=== PATIENT | male | born 1960 | race Two or more races ===

== ENCOUNTER 2018-02-13 16:15 | Emergency (ER) | payer OTHER ==
[~2018-02-13] VITALS: Ht 180.3 cm; Wt 69.0 kg
[2018-02-13 16:19] VITALS: BP 145/102
== END 2018-02-13 21:16 | disposition left against medical advice (07) ==
LOC: ER 16:15
DX: R53.1 Weakness (principal); Z53.21 Procedure and treatment not carried out due to patient leaving prior to being seen by health care provider

== ENCOUNTER 2018-04-21 06:50 | Emergency (ER) | payer OTHER | END 2018-04-21 08:06 | disposition left against medical advice (07) | LOC: ER 06:50 | DX: Z53.21 Procedure and treatment not carried out due to patient leaving prior to being seen by health care provider (principal) ==

== ENCOUNTER 2021-03-24 05:58 | Emergency (ER) | payer MEDICAID, OTHER ==
[~2021-03-24] VITALS: Ht 180.3 cm; Wt 83.9 kg
[2021-03-24] MEDS ORDERED: FUROSEMIDE 40MG/4ML VIAL IV ONE (06:30)
[2021-03-24 06:42] LABS: CHLORIDE 109 mEq/L (98-107)
[2021-03-24 06:52] LABS: BASOPHILS % 0.8 % (0.0-2.0); HEMATOCRIT. 41.4 % (42.0-52.0); LYMPHOCYTES % 37.6 % (20.0-50.0); MEAN CORPUSCULAR HEMOGLOBIN 31.9 pg (28.0-32.0); MEAN CORPUSCULAR VOLUME 94.7 fL (80.0-94.0); MONOCYTES % 8.1 % (2.0-8.0); NEUTROPHILS % 50.5 % (40.0-76.0); PLATELET 211 x1000/uL (130-400); RED BLOOD CELL COUNT 4.37 mill/uL (4.7-6.1); RED CELL DISTRIBUTION WIDTH 13.3 % (11.6-14.6)
[2021-03-24] MEDS ORDERED: ACETAMINOPHEN 325MG TABLET PO PRN (14:15)
[2021-03-24] MEDS ORDERED: ONDANSETRON HCL 4MG/2ML INJ IV PRN (14:15)
[2021-03-24] MEDS ORDERED: IPRATROPIUM/ALBUTEROL 0.5-3(2.5)MG/3ML NEB HHN PRN (14:15)
[2021-03-24] MEDS ORDERED: FUROSEMIDE 40MG/4ML VIAL IVP SCH (17:15)
[2021-03-24 17:56] VITALS: BP 117/81
== END 2021-03-24 17:59 | disposition short-term general hospital (02) ==
LOC: ER 05:58 → EDBEDREQTM 07:28 → EDBEDREQ 07:28 → EDBEDREQTM 12:25 → ER 17:59 → CANBEDREQ 19:02
DX: I11.0 Hypertensive heart disease with heart failure (principal); I50.23 Acute on chronic systolic (congestive) heart failure; N17.9 Acute kidney failure, unspecified; E44.0 Moderate protein-calorie malnutrition; J84.9 Interstitial pulmonary disease, unspecified; D72.819 Decreased white blood cell count, unspecified; E87.8 Other disorders of electrolyte and fluid balance, not elsewhere classified; Z68.25 Body mass index [BMI] 25.0-25.9, adult; Z72.0 Tobacco use; F14.90 Cocaine use, unspecified, uncomplicated; Z71.51 Drug abuse counseling and surveillance of drug abuser
CPT/HCPCS: 36415; 71045; 80053; 83880; 84484; 85025; 93005; 96374; 99285; J1940

== ENCOUNTER 2021-09-21 01:55 | Emergency (ER) | payer MEDICAID, OTHER ==
[~2021-09-21] VITALS: Ht 162.6 cm; Wt 84.0 kg
[2021-09-21] MEDS ORDERED: BACITRACIN ZINC OINT UDPKT TOP ONE (02:45)
[2021-09-21] MEDS ORDERED: HYDROCODONE/ACETAMINOPHEN 5/325MG TABLET PO ONE (02:45)
[2021-09-21] MEDS ORDERED: TETANUS, DIPHTHERIA, PERTUSSIS VAC/PF 0.5ML (>10YR OLD) IM ONE (03:00)
[2021-09-21] MEDS ORDERED: LIDOCAINE HCL/EPINEPHRINE 1%-EPI 1:100,000 20 ML VIAL INFIL ONE (03:15)
[2021-09-21] MEDS ORDERED: HYDROCODONE/ACETAMINOPHEN 5/325MG TABLET PO SCH (06:27)
[2021-09-21] MEDS ORDERED: ACET-2708 PO (06:30)
[2021-09-21] MEDS ORDERED: T3 PO (06:39)
[2021-09-21 06:45] VITALS: BP 138/84
== END 2021-09-21 06:45 | disposition home or self-care (01) ==
LOC: ER 01:55
DX: S01.112A Laceration without foreign body of left eyelid and periocular area, initial encounter (principal); Y08.89XA Assault by other specified means, initial encounter; Y93.89 Activity, other specified; Y92.89 Other specified places as the place of occurrence of the external cause; Y99.8 Other external cause status; F12.10 Cannabis abuse, uncomplicated; F14.10 Cocaine abuse, uncomplicated; I50.9 Heart failure, unspecified
CPT/HCPCS: 70450; 90471; 90715; 99284; J3490; Z7610

== ENCOUNTER 2022-07-07 05:34 | Inpatient (IN) | payer OTHER ==
[~2022-07-07] VITALS: Ht 180.3 cm; Wt 75.7 kg
[~2022-07-07 05:34] MED LIST: T3 PO
[2022-07-07 06:25] LABS: BASOPHILS % 0.4 % (0.0-2.0); CHLORIDE 107 mEq/L (98-107); EOSINOPHILS % 1.4 % (0.0-5.0); HEMATOCRIT. 44.1 % (42.0-52.0); HEMOGLOBIN. 14.6 g/dL (14.0-18.0); LYMPHOCYTES % 21.4 % (20.0-50.0); MEAN CORPUSCULAR HEMOGLOBIN 31.6 pg (28.0-32.0); MEAN CORPUSCULAR VOLUME 95.1 fL (80.0-94.0); MEAN PLATELET VOLUME 7.5 fl (7.4-10.4); MONOCYTES % 11.2 % (2.0-8.0); NEUTROPHILS % 65.6 % (40.0-76.0); PLATELET 214 x1000/uL (130-400); RED BLOOD CELL COUNT 4.64 mill/uL (4.7-6.1); RED CELL DISTRIBUTION WIDTH 14.9 % (11.6-14.6)
[2022-07-07] MEDS ORDERED: ASPIRIN 325MG EC TABLET PO ONE (07:45)
[2022-07-07] MEDS ORDERED: ASPIRIN 325MG EC TABLET PO NR (12:45)
[2022-07-07] MEDS ORDERED: CLONIDINE 0.1MG TABLET PO PRN (14:45)
[2022-07-07] MEDS ORDERED: DOCUSATE SODIUM 100MG CAPSULE PO PRN (14:45)
[2022-07-07] MEDS ORDERED: IPRATROPIUM/ALBUTEROL 0.5-3(2.5)MG/3ML NEB HHN PRN (14:45)
[2022-07-07] MEDS ORDERED: ONDANSETRON HCL 4MG/2ML INJ IV PRN (14:45)
[2022-07-07] MEDS ORDERED: ACETAMINOPHEN 325MG TABLET PO PRN ×2 (14:45)
[2022-07-07] MEDS ORDERED: HYDROCODONE/ACETAMINOPHEN 5/325MG TABLET PO PRN (14:45)
[2022-07-07] MEDS ORDERED: LORAZEPAM 0.5MG TABLET PO PRN (14:45)
[2022-07-07 15:15] VITALS: BP 124/85
[2022-07-07 16:00] VITALS: BP 132/77
[2022-07-07] MEDS: ENOXAPARIN 40MG/0.4ML SYR SUBCUT SCH (16:02)
[2022-07-07] MEDS ORDERED: FURO40TA5 PO (16:44)
[2022-07-07 17:47] LABS: T4 FREE 1.26 ng/dL (0.76-1.46)
[2022-07-07 18:17] LABS: HEPATITIS B SURFACE ANTIGEN NEGATIVE
[2022-07-07] MEDS ORDERED: ALBUTEROL (0.083%) 2.5MG/3ML NEB HHN PRN (19:45)
[2022-07-07] MEDS ORDERED: IPRATROPIUM BROMIDE (0.02%) 0.5MG/2.5ML NEB HHN PRN (19:45)
[2022-07-07] MEDS ORDERED: NALOXONE HCL 0.4MG/ML VIAL IV PRN (19:45)
[2022-07-07 20:00] VITALS: BP 134/102
[2022-07-07 23:27] LABS: CREATINE KINASE MB FRACTION 4.2 ng/mL (0.5-3.6)
[2022-07-07 23:28] LABS: *AMPHETAMINES SCREEN URINE NEGATIVE (NEGATIVE); *BARBITURATES SCREEN URINE NEGATIVE (NEGATIVE); *BENZODIAZEPINES SCREEN URINE NEGATIVE (NEGATIVE); *COCAINE SCREEN URINE PRESUMTIVE POSITIVE (NEGATIVE); CANNABINOID URINE SCREEN NEGATIVE (NEGATIVE); METHADONE URINE SCREEN NEGATIVE (NEGATIVE); OPIATES URINE SCREEN NEGATIVE (NEGATIVE); PHENCYCLIDINE URINE SCREEN NEGATIVE (NEGATIVE)
[2022-07-08] VITALS: BP 127/85
[2022-07-08 04:00] VITALS: BP 128/83
[2022-07-08 08:00] VITALS: BP 131/89
[2022-07-08] MEDS: FUROSEMIDE 20MG/2ML VIAL IVP SCH (09:00)
[2022-07-08 09:21] LABS: BASOPHILS % 0.7 % (0.0-2.0); EOSINOPHILS % 1.9 % (0.0-5.0); HEMATOCRIT. 42.7 % (42.0-52.0); HEMOGLOBIN. 13.9 g/dL (14.0-18.0); MEAN CORPUSCULAR HEMOGLOBIN 31.2 pg (28.0-32.0); MEAN CORPUSCULAR VOLUME 95.7 fL (80.0-94.0); MEAN PLATELET VOLUME 8.1 fl (7.4-10.4); MONOCYTES % 11.5 % (2.0-8.0); NEUTROPHILS % 51.9 % (40.0-76.0); PLATELET 206 x1000/uL (130-400); RED BLOOD CELL COUNT 4.46 mill/uL (4.7-6.1); RED CELL DISTRIBUTION WIDTH 15.1 % (11.6-14.6)
[2022-07-08 09:38] LABS: CREATINE KINASE MB FRACTION 3.3 ng/mL (0.5-3.6)
[2022-07-08 12:00] VITALS: BP 118/95
[2022-07-08] MEDS: LOSARTAN POTASSIUM 25 MG TABLET PO SCH (13:00)
[2022-07-08] MEDS: ENOXAPARIN 40MG/0.4ML SYR SUBCUT SCH (15:51)
[2022-07-08 16:00] VITALS: BP 115/89
[2022-07-08 18:29] LABS: CREATINE KINASE MB FRACTION 2.9 ng/mL (0.5-3.6)
[2022-07-08 20:00] VITALS: BP 140/99
[2022-07-09] VITALS: BP 139/96
[2022-07-09 04:00] VITALS: BP 128/95
[2022-07-09 08:00] VITALS: BP 132/104
[2022-07-09] MEDS: LOSARTAN POTASSIUM 25 MG TABLET PO SCH (08:36)
[2022-07-09] MEDS: FUROSEMIDE 20MG/2ML VIAL IVP SCH (08:36)
[2022-07-09 12:00] VITALS: BP 126/98
[2022-07-09 16:00] VITALS: BP 132/96
[2022-07-09] MEDS: ENOXAPARIN 40MG/0.4ML SYR SUBCUT SCH (16:09)
[2022-07-09 20:00] VITALS: BP 136/89
== END 2022-07-09 23:31 | disposition left against medical advice (07) | DRG 194 ==
LOC: ER 05:34 → 7WST 10:36 → EDBEDREQ 10:43 → EDBEDREQTM 10:43
PROVIDERS: ADMIT Internal Medicine; ATTEND Internal Medicine
DX: I50.23 Acute on chronic systolic (congestive) heart failure (principal); I42.9 Cardiomyopathy, unspecified; Z20.822 Contact with and (suspected) exposure to COVID-19; J43.9 Emphysema, unspecified; R79.89 Other specified abnormal findings of blood chemistry; Z53.29 Procedure and treatment not carried out because of patient's decision for other reasons; Z59.00 Homelessness unspecified; Z87.891 Personal history of nicotine dependence
CPT/HCPCS: 36415; 71045; 80048; 80053; 80061; 80305; 82550; 82553; 83036; 83880; 84439; 84443; 84484; 85025; 85379; 86803; 87340; 87426; 93005; 93306; 99285; J1650; J1940

== ENCOUNTER 2022-07-15 22:17 | Emergency (ER) | payer OTHER ==
[~2022-07-15] VITALS: Ht 167.6 cm; Wt 75.0 kg
[~2022-07-15 22:17] MED LIST changes: +FURO40TA5 PO
[2022-07-15 22:30] VITALS: BP 106/52
[2022-07-16] MEDS ORDERED: FUROSEMIDE 100MG/10ML VIAL IVP ONE
[2022-07-16 00:45] LABS: BASOPHILS % 0.7 % (0.0-2.0); EOSINOPHILS % 2.4 % (0.0-5.0); HEMATOCRIT. 44.1 % (42.0-52.0); HEMOGLOBIN. 14.5 g/dL (14.0-18.0); LYMPHOCYTES % 29.9 % (20.0-50.0); MEAN CORPUSCULAR HEMOGLOBIN 31.8 pg (28.0-32.0); MEAN CORPUSCULAR VOLUME 96.5 fL (80.0-94.0); MEAN PLATELET VOLUME 7.8 fl (7.4-10.4); MONOCYTES % 12.8 % (2.0-8.0); NEUTROPHILS % 54.2 % (40.0-76.0); PLATELET 261 x1000/uL (130-400); RED BLOOD CELL COUNT 4.57 mill/uL (4.7-6.1); RED CELL DISTRIBUTION WIDTH 15.2 % (11.6-14.6)
[2022-07-16 00:52] LABS: CHLORIDE 108 mEq/L (98-107)
[2022-07-16] MEDS ORDERED: ASPIRIN 325MG EC TABLET PO ONE (02:30)
[2022-07-16] MEDS ORDERED: FUROSEMIDE 100MG/10ML VIAL IVP NR (04:30)
[2022-07-16] MEDS ORDERED: ASPIRIN 325MG EC TABLET PO NR (04:30)
[2022-07-16] MEDS ORDERED: LEVO750T68 MT (06:24)
[2022-07-16] MEDS ORDERED: ALBU6.7H3 INH (06:26)
== END 2022-07-16 06:40 | disposition home or self-care (01) ==
LOC: ER 22:26
DX: I50.9 Heart failure, unspecified (principal); R05.9 Cough, unspecified; F12.10 Cannabis abuse, uncomplicated; F14.10 Cocaine abuse, uncomplicated; F17.210 Nicotine dependence, cigarettes, uncomplicated; Z79.01 Long term (current) use of anticoagulants; Z20.822 Contact with and (suspected) exposure to COVID-19
CPT/HCPCS: 36415; 71045; 80053; 83880; 84484; 85025; 96374; 99284; J1940; Z7610

== ENCOUNTER 2022-11-16 12:55 | Emergency (ER) | payer OTHER ==
[~2022-11-16] VITALS: Ht 182.9 cm; Wt 77.5 kg
[~2022-11-16 12:55] MED LIST changes: +ALBU6.7H3 INH; +ASPI-1160 PO; +FURO40TA5 MT; -FURO40TA5 PO; +LIP40 PO; +LOSA-412 PO; +MED4 MT; +SPIR25TA PO; -T3 PO
[2022-11-16 13:01] VITALS: O2SAT 100
[2022-11-16] MEDS ORDERED: ALBUTEROL (0.083%) 2.5MG/3ML NEB HHN STA (13:03)
[2022-11-16] MEDS ORDERED: METHYLPREDNISOLONE SOD SUCC 125MG/2ML (ACT-O-VIAL) IV STA (13:03)
[2022-11-16 14:07] VITALS: PULSE 89; RESP 26
[2022-11-16 15:04] LABS: BG BASE EXCESS 1.6 mmol/L (-2.0-2.0); BG CARBOXYHEMOGLOBIN 4.6 % (0.5-1.5); BG DEOXYHEMOGLOBIN 3.8 % (0.0-5.0); BG HCO3 ACT 27.7 mmol/L (22.0-26.0); BG METHEMOGLOBIN 0.2 % (0.0-1.5); BG OXYHEMOGLOBIN 91.4 % (94.0-97.0); BG PCO2 49.1 mmHg (35.0-45.0); BG PO2 79.8 mmHg (75.0-100.0); BG SAMPLE SITE RIGHT BRACHIAL; BG TOTAL HEMOGLOBIN 15.3 g/dL (12.0-18.0); BG VENT MODE NASAL CANNULA
[2022-11-16 15:11] LABS: BASOPHILS % 0.4 % (0.0-2.0); EOSINOPHILS % 1.2 % (0.0-5.0); HEMOGLOBIN. 14.5 g/dL (14.0-18.0); MEAN CORPUSCULAR HEMOGLOBIN 32.7 pg (28.0-32.0); MEAN CORPUSCULAR HGB CONC 32.9 g/dL (31.0-37.0); MEAN CORPUSCULAR VOLUME 99.4 fL (80.0-94.0); MEAN PLATELET VOLUME 7.7 fl (7.4-10.4); NEUTROPHILS % 61.4 % (40.0-76.0); PLATELET 178 x1000/uL (130-400); RED BLOOD CELL COUNT 4.43 mill/uL (4.7-6.1); RED CELL DISTRIBUTION WIDTH 14.2 % (11.6-14.6); WHITE BLOOD COUNT 4.4 x1000/uL (4.5-11.0)
[2022-11-16 15:19] LABS: CHLORIDE 107 mEq/L (98-107); INDEX HEMOLYSI 1 (1-3); INDEX ICTERIC 1 (1-4); INDEX LIPEMIC 1 (1-3); POTASSIUM 4.3 mEq/L (3.5-5.1); SODIUM 138 mEq/L (136-145)
[2022-11-16 15:30] LABS: ALANINE AMINOTRANSFERASE 19 IU/L (13-61); ALBUMIN 2.8 g/dL (3.4-5.0); ASPARTATE AMINOTRANSFERASE 14 IU/L (15-37); BILIRUBIN TOTAL 0.5 mg/dL (0.1-1.0); CALCIUM 8.2 mg/dL (8.5-10.1); CARBON DIOXIDE 28 mEq/L (21-32); CREATININE 1.3 mg/dL (0.6-1.3); GLUCOSE 115 mg/dL (70-105); NT PRO B-TYPE NATRIURETIC PEP 8470 pg/mL (5-125); PROTEIN TOTAL 6.4 g/dL (6.0-8.3); TROPONIN I HIGH SENSITIVITY 53 ng/L (<78); UREA NITROGEN BLOOD 20 mg/dL (7-21)
[2022-11-16 17:51] VITALS: BP 127/91; PULSE 84; RESP 20; TEMP 98.4
== END 2022-11-16 17:59 | disposition left against medical advice (07) ==
LOC: ER 12:55 → CANBEDREQ 23:57
DX: R06.03 Acute respiratory distress (principal); I50.9 Heart failure, unspecified; I11.0 Hypertensive heart disease with heart failure; J44.1 Chronic obstructive pulmonary disease with (acute) exacerbation
CPT/HCPCS: 80053; 80320; 83880; 85025; 84484; 36415; 71045; 94640; 82805; 82375; 93005; 96374; 99285; 36600; J2930; Z7610 ×6; G0480

== ENCOUNTER 2022-11-22 02:43 | Emergency (ER) | payer OTHER ==
[~2022-11-22] VITALS: Ht 182.9 cm; Wt 90.0 kg
[~2022-11-22 02:43] MED LIST changes: -LOSA-412 PO; +LOSA25TA3 PO
[2022-11-22] MEDS ORDERED: IPRATROPIUM/ALBUTEROL 0.5-3(2.5)MG/3ML NEB HHN ONE (03:30)
[2022-11-22] MEDS ORDERED: METHYLPREDNISOLONE SOD SUCC 40MG VIAL IV ONE (03:30)
[2022-11-22] MEDS ORDERED: METHYLPREDNISOLONE SOD SUCC 125MG VIAL IV NR (03:45)
[2022-11-22 04:02] LABS: BG BASE EXCESS 1.7 mmol/L (-2.0-2.0); BG DEOXYHEMOGLOBIN 1.1 % (0.0-5.0); BG FRACTION INSPIRED OXYGEN 44; BG HCO3 ACT 27.3 mmol/L (22.0-26.0); BG METHEMOGLOBIN 0.3 % (0.0-1.5); BG OXYGEN SATURATION 98.9 % (92.0-98.5); BG OXYHEMOGLOBIN 94.6 % (94.0-97.0); BG PCO2 46.3 mmHg (35.0-45.0); BG PH 7.388 (7.350-7.450); BG PO2 139.7 mmHg (75.0-100.0); BG SAMPLE SITE LEFT BRACHIAL; BG TOTAL HEMOGLOBIN 15.4 g/dL (12.0-18.0); BG VENT MODE MASK - SIMPLE
[2022-11-22 04:05] LABS: BASOPHILS % 0.4 % (0.0-2.0); EOSINOPHILS % 1.6 % (0.0-5.0); HEMATOCRIT. 44.6 % (42.0-52.0); HEMOGLOBIN. 14.9 g/dL (14.0-18.0); LYMPHOCYTES % 32.6 % (20.0-50.0); MEAN CORPUSCULAR HEMOGLOBIN 32.8 pg (28.0-32.0); MEAN CORPUSCULAR HGB CONC 33.4 g/dL (31.0-37.0); MEAN CORPUSCULAR VOLUME 98.3 fL (80.0-94.0); MEAN PLATELET VOLUME 7.9 fl (7.4-10.4); MONOCYTES % 9.9 % (2.0-8.0); NEUTROPHILS % 55.5 % (40.0-76.0); PLATELET 194 x1000/uL (130-400); RED BLOOD CELL COUNT 4.54 mill/uL (4.7-6.1); RED CELL DISTRIBUTION WIDTH 14.5 % (11.6-14.6); WHITE BLOOD COUNT 4.4 x1000/uL (4.5-11.0)
[2022-11-22 04:07] VITALS: PULSE 87; RESP 20; O2SAT 99
[2022-11-22 04:17] LABS: CHLORIDE 112 mEq/L (98-107); INDEX HEMOLYSI 1 (1-3); INDEX ICTERIC 1 (1-4); INDEX LIPEMIC 1 (1-3); POTASSIUM 4.5 mEq/L (3.5-5.1); SODIUM 141 mEq/L (136-145)
[2022-11-22 04:27] LABS: *AMPHETAMINES SCREEN URINE NEGATIVE (NEGATIVE); *BARBITURATES SCREEN URINE NEGATIVE (NEGATIVE); *BENZODIAZEPINES SCREEN URINE NEGATIVE (NEGATIVE); *COCAINE SCREEN URINE PRESUMTIVE POSITIVE (NEGATIVE); CANNABINOID URINE SCREEN NEGATIVE (NEGATIVE); ECSTASY MDMA SCREEN URINE NEGATIVE (NEGATIVE); METHADONE URINE SCREEN NEGATIVE (NEGATIVE); OPIATES URINE SCREEN NEGATIVE (NEGATIVE); PHENCYCLIDINE URINE SCREEN NEGATIVE (NEGATIVE)
[2022-11-22 04:27] LABS: ALANINE AMINOTRANSFERASE 50 IU/L (13-61); ALBUMIN 2.8 g/dL (3.4-5.0); ASPARTATE AMINOTRANSFERASE 37 IU/L (15-37); BILIRUBIN TOTAL 0.6 mg/dL (0.1-1.0); CALCIUM 8.2 mg/dL (8.5-10.1); CARBON DIOXIDE 28 mEq/L (21-32); CREATININE 1.2 mg/dL (0.6-1.3); ETHANOL BLOOD < 10 mg/dL (-10); GLUCOSE 94 mg/dL (70-105); NT PRO B-TYPE NATRIURETIC PEP 7885 pg/mL (5-125); PROTEIN TOTAL 6.3 g/dL (6.0-8.3); TROPONIN I HIGH SENSITIVITY 77 ng/L (<78); UREA NITROGEN BLOOD 26 mg/dL (7-21)
[2022-11-22] MEDS ORDERED: FUROSEMIDE 40MG/4ML VIAL IVP SCH (05:45)
[2022-11-22 06:37] VITALS: BP 130/80; PULSE 85; RESP 16; TEMP 98.8
== END 2022-11-22 07:05 | disposition left against medical advice (07) ==
LOC: ER 02:48 → CANBEDREQ 11-23 20:19
DX: I11.0 Hypertensive heart disease with heart failure (principal); I50.9 Heart failure, unspecified; F14.10 Cocaine abuse, uncomplicated; J44.1 Chronic obstructive pulmonary disease with (acute) exacerbation; Z79.899 Other long term (current) drug therapy
CPT/HCPCS: 80053; 80305; 80320; 83880; 85025; 84484; 36415; 71045; 94640; 82805; 82375; 93005; 96374; 96375; 99285; 36600; Z7610 ×5; J1940; J2930; 94664; J2920; G0480

== ENCOUNTER 2022-12-22 04:23 | Emergency (ER) | payer OTHER ==
[~2022-12-22] VITALS: Ht 180.3 cm; Wt 73.0 kg
[2022-12-22 04:26] VITALS: BP 138/89; PULSE 77; RESP 16; TEMP 97.7; O2SAT 98
== END 2022-12-22 08:52 | disposition left against medical advice (07) ==
LOC: ER 04:23
DX: I50.9 Heart failure, unspecified (principal)
CPT/HCPCS: 99281

== ENCOUNTER 2023-02-11 09:43 | Emergency (ER) | payer OTHER ==
[~2023-02-11] VITALS: Ht 172.7 cm; Wt 64.0 kg
[~2023-02-11 09:43] MED LIST changes: +LOSA-412 PO; -LOSA25TA3 PO
[2023-02-11] MEDS ORDERED: ALBUTEROL (0.083%) 2.5MG/3ML NEB HHN STA (09:48)
[2023-02-11] MEDS ORDERED: IPRATROPIUM BROMIDE (0.02%) 0.5MG/2.5ML NEB HHN STA (09:48)
[2023-02-11] MEDS ORDERED: MAGNESIUM 2 G PREMIX 50 ML IV STA (09:48)
[2023-02-11] MEDS ORDERED: METHYLPREDNISOLONE SOD SUCC 125MG/2ML (ACT-O-VIAL) IV STA (09:48)
[2023-02-11 09:51] VITALS: TEMP 97.8
[2023-02-11 10:22] LABS: BG BASE EXCESS -1.2 mmol/L (-2.0-2.0); BG CARBOXYHEMOGLOBIN 5.2 % (0.5-1.5); BG DEOXYHEMOGLOBIN 8.2 % (0.0-5.0); BG FRACTION INSPIRED OXYGEN 21; BG HCO3 ACT 24.8 mmol/L (22.0-26.0); BG METHEMOGLOBIN 0.2 % (0.0-1.5); BG OXYGEN SATURATION 91.3 % (92.0-98.5); BG OXYHEMOGLOBIN 86.4 % (94.0-97.0); BG PH 7.349 (7.350-7.450); BG SAMPLE SITE RIGHT BRACHIAL; BG TOTAL HEMOGLOBIN 15.8 g/dL (12.0-18.0); BG VENT MODE ROOM AIR
[2023-02-11 10:27] VITALS: PULSE 64; RESP 24; O2SAT 100
[2023-02-11 11:28] LABS: BASOPHILS % 0.7 % (0.0-2.0); EOSINOPHILS % 1.5 % (0.0-5.0); HEMATOCRIT. 45.5 % (42.0-52.0); LYMPHOCYTES % 33.2 % (20.0-50.0); MEAN CORPUSCULAR HEMOGLOBIN 32.7 pg (28.0-32.0); MEAN CORPUSCULAR VOLUME 99.2 fL (80.0-94.0); MEAN PLATELET VOLUME 7.8 fl (7.4-10.4); NEUTROPHILS % 51.6 % (40.0-76.0); PLATELET 177 x1000/uL (130-400); RED BLOOD CELL COUNT 4.59 mill/uL (4.7-6.1); RED CELL DISTRIBUTION WIDTH 14.4 % (11.6-14.6); WHITE BLOOD COUNT 3.5 x1000/uL (4.5-11.0)
[2023-02-11 11:38] LABS: CHLORIDE 109 mEq/L (98-107); INDEX HEMOLYSI 1 (1-3); INDEX ICTERIC 1 (1-4); INDEX LIPEMIC 1 (1-3); POTASSIUM 4.3 mEq/L (3.5-5.1); SODIUM 140 mEq/L (136-145)
[2023-02-11 11:48] LABS: ALANINE AMINOTRANSFERASE 31 IU/L (13-61); ALBUMIN 2.6 g/dL (3.4-5.0); ASPARTATE AMINOTRANSFERASE 20 IU/L (15-37); BILIRUBIN TOTAL 0.6 mg/dL (0.1-1.0); CALCIUM 8.1 mg/dL (8.5-10.1); CARBON DIOXIDE 30 mEq/L (21-32); CREATININE 1.1 mg/dL (0.6-1.3); GLUCOSE 86 mg/dL (70-105); NT PRO B-TYPE NATRIURETIC PEP 13375 pg/mL (5-125); PROTEIN TOTAL 6.1 g/dL (6.0-8.3); TROPONIN I HIGH SENSITIVITY 32 ng/L (<78); UREA NITROGEN BLOOD 19 mg/dL (7-21)
[2023-02-11 13:00] VITALS: BP 128/90; PULSE 61; RESP 18
[2023-02-11] MEDS ORDERED: FUROSEMIDE 20MG/2ML VIAL IVP ONE (13:00)
== END 2023-02-11 14:52 | disposition left against medical advice (07) ==
LOC: ER 09:43 → EDBEDREQSVC 13:17 → EDBEDREQ 13:17 → EDBEDREQTM 13:17 → CANBEDREQ 14:49 → ER 14:52
DX: J44.1 Chronic obstructive pulmonary disease with (acute) exacerbation (principal); I11.0 Hypertensive heart disease with heart failure; I50.9 Heart failure, unspecified; Z79.899 Other long term (current) drug therapy; Z20.822 Contact with and (suspected) exposure to COVID-19
CPT/HCPCS: 80053; 83880; 85025; 84484; 36415; 71045; 82805; 82375; 93005; 96365; 96375; 99291; 87426; 36600; J1940; J3475; J2930; Z7610 ×2; C9803

== ENCOUNTER 2023-02-25 00:28 | Emergency (ER) | payer OTHER ==
[~2023-02-25] VITALS: Ht 175.3 cm; Wt 64.0 kg
[2023-02-25 01:09] VITALS: O2SAT 89
[2023-02-25 01:12] LABS: CHLORIDE 111 mEq/L (98-107); INDEX HEMOLYSI 1 (1-3); INDEX ICTERIC 1 (1-4); INDEX LIPEMIC 1 (1-3); POTASSIUM 4.5 mEq/L (3.5-5.1); SODIUM 139 mEq/L (136-145)
[2023-02-25 01:22] LABS: ALANINE AMINOTRANSFERASE 35 IU/L (13-61); ALBUMIN 2.6 g/dL (3.4-5.0); ASPARTATE AMINOTRANSFERASE 28 IU/L (15-37); BILIRUBIN TOTAL 0.5 mg/dL (0.1-1.0); CALCIUM 7.8 mg/dL (8.5-10.1); CARBON DIOXIDE 28 mEq/L (21-32); CREATININE 1.5 mg/dL (0.6-1.3); ETHANOL BLOOD < 10 mg/dL (<10); GLUCOSE 118 mg/dL (70-105); NT PRO B-TYPE NATRIURETIC PEP 24108 pg/mL (5-125); TROPONIN I HIGH SENSITIVITY 64 ng/L (<78); UREA NITROGEN BLOOD 28 mg/dL (7-21)
[2023-02-25 01:56] LABS: BASOPHILS % 0.7 % (0.0-2.0); EOSINOPHILS % 1.1 % (0.0-5.0); HEMATOCRIT. 45.6 % (42.0-52.0); HEMOGLOBIN. 15.1 g/dL (14.0-18.0); MEAN CORPUSCULAR HEMOGLOBIN 32.6 pg (28.0-32.0); MEAN CORPUSCULAR HGB CONC 33.1 g/dL (31.0-37.0); MEAN CORPUSCULAR VOLUME 98.4 fL (80.0-94.0); MEAN PLATELET VOLUME 7.9 fl (7.4-10.4); MONOCYTES % 10.3 % (2.0-8.0); NEUTROPHILS % 63.9 % (40.0-76.0); PLATELET 214 x1000/uL (130-400); RED BLOOD CELL COUNT 4.63 mill/uL (4.7-6.1); RED CELL DISTRIBUTION WIDTH 14.6 % (11.6-14.6); WHITE BLOOD COUNT 4.3 x1000/uL (4.5-11.0)
[2023-02-25] MEDS: FUROSEMIDE 40MG/4ML VIAL IVP NR (02:05)
[2023-02-25 07:03] VITALS: BP 97/69; PULSE 68; RESP 24; TEMP 97.9
== END 2023-02-25 07:17 | disposition short-term general hospital (02) ==
LOC: ER 00:28 → CANBEDREQ 03:35 → ER 07:17
DX: I11.0 Hypertensive heart disease with heart failure (principal); I50.9 Heart failure, unspecified; Z91.148 Patient's other noncompliance with medication regimen for other reason; Z59.00 Homelessness unspecified
CPT/HCPCS: 80053; 80320; 83880; 85025; 84484; 36415; 71045; 93005; 96374; 99285; J1940; Z7610 ×4; G0480

== ENCOUNTER 2023-03-19 05:53 | Emergency (ER) | payer OTHER ==
[~2023-03-19] VITALS: Ht 182.9 cm; Wt 87.0 kg
[2023-03-19] MEDS ORDERED: IPRATROPIUM/ALBUTEROL 0.5-3(2.5)MG/3ML NEB HHN NR (06:30)
[2023-03-19 06:33] LABS: BASOPHILS % 0.5 % (0.0-2.0); EOSINOPHILS % 1.5 % (0.0-5.0); HEMATOCRIT. 43.8 % (42.0-52.0); HEMOGLOBIN. 14.3 g/dL (14.0-18.0); LYMPHOCYTES % 22.9 % (20.0-50.0); MEAN CORPUSCULAR HEMOGLOBIN 31.9 pg (28.0-32.0); MEAN CORPUSCULAR HGB CONC 32.7 g/dL (31.0-37.0); MEAN CORPUSCULAR VOLUME 97.5 fL (80.0-94.0); MEAN PLATELET VOLUME 7.8 fl (7.4-10.4); MONOCYTES % 8.4 % (2.0-8.0); NEUTROPHILS % 66.7 % (40.0-76.0); PLATELET 166 x1000/uL (130-400); RED BLOOD CELL COUNT 4.49 mill/uL (4.7-6.1); RED CELL DISTRIBUTION WIDTH 14.3 % (11.6-14.6); WHITE BLOOD COUNT 4.6 x1000/uL (4.5-11.0)
[2023-03-19 06:38] LABS: BG BASE EXCESS 5.3 mmol/L (-2.0-2.0); BG CARBOXYHEMOGLOBIN 7.1 % (0.5-1.5); BG DEOXYHEMOGLOBIN 0.9 % (0.0-5.0); BG FRACTION INSPIRED OXYGEN 21; BG HCO3 ACT 25.5 mmol/L (22.0-26.0); BG METHEMOGLOBIN 0.3 % (0.0-1.5); BG OXYHEMOGLOBIN 91.7 % (94.0-97.0); BG PCO2 26.6 mmHg (35.0-45.0); BG PO2 126.6 mmHg (75.0-100.0); BG SAMPLE SITE RIGHT RADIAL; BG VENT MODE ROOM AIR
[2023-03-19 06:46] VITALS: PULSE 89; RESP 35; O2SAT 99
[2023-03-19 07:05] LABS: CHLORIDE 108 mEq/L (98-107); INDEX HEMOLYSI 1 (1-3); INDEX ICTERIC 1 (1-4); INDEX LIPEMIC 1 (1-3); POTASSIUM 4.6 mEq/L (3.5-5.1); SODIUM 139 mEq/L (136-145)
[2023-03-19 07:24] LABS: ALANINE AMINOTRANSFERASE 15 IU/L (13-61); ALBUMIN 2.7 g/dL (3.4-5.0); ASPARTATE AMINOTRANSFERASE 15 IU/L (15-37); BILIRUBIN TOTAL 0.5 mg/dL (0.1-1.0); CARBON DIOXIDE 29 mEq/L (21-32); CREATININE 1.2 mg/dL (0.6-1.3); GLUCOSE 98 mg/dL (70-105); NT PRO B-TYPE NATRIURETIC PEP 17145 pg/mL (5-125); PROTEIN TOTAL 6.4 g/dL (6.0-8.3); TROPONIN I HIGH SENSITIVITY 55 ng/L (<78); UREA NITROGEN BLOOD 15 mg/dL (7-21)
[2023-03-19 08:41] LABS: BG BASE EXCESS 0.4 mmol/L (-2.0-2.0); BG CARBOXYHEMOGLOBIN 5.4 % (0.5-1.5); BG DEOXYHEMOGLOBIN 4.2 % (0.0-5.0); BG FRACTION INSPIRED OXYGEN 28; BG HCO3 ACT 25.9 mmol/L (22.0-26.0); BG METHEMOGLOBIN 0.1 % (0.0-1.5); BG OXYGEN SATURATION 95.6 % (92.0-98.5); BG OXYHEMOGLOBIN 90.3 % (94.0-97.0); BG PCO2 44.8 mmHg (35.0-45.0); BG PO2 79.3 mmHg (75.0-100.0); BG SAMPLE SITE RIGHT BRACHIAL; BG TOTAL HEMOGLOBIN 15.1 g/dL (12.0-18.0); BG VENT MODE NASAL CANNULA
[2023-03-19] MEDS ORDERED: NALOXONE HCL 0.4 MG/ML 1ML VIAL IV ONE (09:00)
[2023-03-19] MEDS ORDERED: FUROSEMIDE 40MG/4ML VIAL IVP NR (09:00)
[2023-03-19 11:44] VITALS: BP 134/85; PULSE 99; RESP 12; TEMP 98.1
== END 2023-03-19 12:17 | disposition left against medical advice (07) ==
LOC: ER 05:53
DX: I50.9 Heart failure, unspecified (principal); J44.1 Chronic obstructive pulmonary disease with (acute) exacerbation; R51.9 Headache, unspecified
CPT/HCPCS: 80053; 83880; 85025; 84484; 36415; 71045; 70450; 94640; 82805; 82375; 93005; 96374; 99285; 36600; J1940; Z7610 ×9

== ENCOUNTER 2023-03-25 02:26 | Emergency (ER) | payer OTHER ==
[~2023-03-25] VITALS: Ht 172.7 cm; Wt 70.0 kg
[2023-03-25 02:28] VITALS: O2SAT 95
[2023-03-25 03:32] LABS: BG BASE EXCESS 1.4 mmol/L (-2.0-2.0); BG DEOXYHEMOGLOBIN 2.8 % (0.0-5.0); BG FRACTION INSPIRED OXYGEN 28; BG HCO3 ACT 27.4 mmol/L (22.0-26.0); BG OXYGEN SATURATION 97.1 % (92.0-98.5); BG OXYHEMOGLOBIN 93.2 % (94.0-97.0); BG PCO2 48.3 mmHg (35.0-45.0); BG PH 7.372 (7.350-7.450); BG PO2 90.5 mmHg (75.0-100.0); BG SAMPLE SITE RIGHT BRACHIAL; BG VENT MODE NASAL CANNULA
[2023-03-25 03:33] LABS: BASOPHILS % 0.5 % (0.0-2.0); EOSINOPHILS % 2.2 % (0.0-5.0); HEMATOCRIT. 48.7 % (42.0-52.0); LYMPHOCYTES % 33.6 % (20.0-50.0); MEAN CORPUSCULAR HEMOGLOBIN 32.7 pg (28.0-32.0); MEAN CORPUSCULAR HGB CONC 32.8 g/dL (31.0-37.0); MEAN CORPUSCULAR VOLUME 99.7 fL (80.0-94.0); MEAN PLATELET VOLUME 7.5 fl (7.4-10.4); MONOCYTES % 11.5 % (2.0-8.0); NEUTROPHILS % 52.2 % (40.0-76.0); PLATELET 170 x1000/uL (130-400); RED BLOOD CELL COUNT 4.88 mill/uL (4.7-6.1); RED CELL DISTRIBUTION WIDTH 14.6 % (11.6-14.6); WHITE BLOOD COUNT 3.8 x1000/uL (4.5-11.0)
[2023-03-25 03:42] LABS: CHLORIDE 109 mEq/L (98-107); INDEX HEMOLYSI 2 (1-3); INDEX ICTERIC 1 (1-4); INDEX LIPEMIC 1 (1-3); SODIUM 141 mEq/L (136-145)
[2023-03-25 03:51] LABS: ALANINE AMINOTRANSFERASE 44 IU/L (13-61); ALBUMIN 2.9 g/dL (3.4-5.0); ASPARTATE AMINOTRANSFERASE 36 IU/L (15-37); BILIRUBIN TOTAL 0.5 mg/dL (0.1-1.0); CALCIUM 8.3 mg/dL (8.5-10.1); CARBON DIOXIDE 31 mEq/L (21-32); CREATININE 1.4 mg/dL (0.6-1.3); ETHANOL BLOOD < 10 mg/dL (<10); GLUCOSE 87 mg/dL (70-105); NT PRO B-TYPE NATRIURETIC PEP 14287 pg/mL (5-125); TROPONIN I HIGH SENSITIVITY 68 ng/L (<78); UREA NITROGEN BLOOD 18 mg/dL (7-21)
[2023-03-25] MEDS ORDERED: FUROSEMIDE 40MG/4ML VIAL IVP NR (05:30)
[2023-03-25 06:18] LABS: *AMPHETAMINES SCREEN URINE NEGATIVE (NEGATIVE); *BARBITURATES SCREEN URINE NEGATIVE (NEGATIVE); *BENZODIAZEPINES SCREEN URINE NEGATIVE (NEGATIVE); *COCAINE SCREEN URINE PRESUMTIVE POSITIVE (NEGATIVE); CANNABINOID URINE SCREEN NEGATIVE (NEGATIVE); ECSTASY MDMA SCREEN URINE NEGATIVE (NEGATIVE); METHADONE URINE SCREEN NEGATIVE (NEGATIVE); OPIATES URINE SCREEN NEGATIVE (NEGATIVE); PHENCYCLIDINE URINE SCREEN NEGATIVE (NEGATIVE)
[2023-03-25] MEDS ORDERED: BUDESONIDE 0.5MG/2ML NEB HHN SCH (10:45)
[2023-03-25] MEDS ORDERED: IPRATROPIUM/ALBUTEROL 0.5-3(2.5)MG/3ML NEB HHN PRN (10:45)
[2023-03-25 11:10] VITALS: BP 139/106; PULSE 66; RESP 18; TEMP 98.2
[2023-03-25] MEDS ORDERED: IPRATROPIUM/ALBUTEROL 0.5-3(2.5)MG/3ML NEB HHN SCH (12:00)
== END 2023-03-25 11:12 | disposition short-term general hospital (02) ==
LOC: ER 02:26
DX: I50.9 Heart failure, unspecified (principal); F14.10 Cocaine abuse, uncomplicated; Z79.899 Other long term (current) drug therapy
CPT/HCPCS: 80053; 80305; 80320; 83880; 83690; 85025; 84484; 36415; 71045; 82805; 82375; 93005; 96374; 99285; 36600; J1940; G0480

== ENCOUNTER 2023-09-30 04:01 | Emergency (ER) | payer OTHER ==
[~2023-09-30] VITALS: Ht 182.9 cm; Wt 91.0 kg
[~2023-09-30 04:01] MED LIST changes: +ALBU18HF2 IH; -ALBU6.7H3 INH; +FLUT1DIS3 INH; -FURO40TA5 MT; +FURO80TA87 MT; -MED4 MT; -SPIR25TA PO; +SPIR25TA6 PO
[2023-09-30 04:05] VITALS: BP 122/72; PULSE 76; RESP 18; TEMP 98.3; O2SAT 99
[2023-09-30] MEDS ORDERED: ONDANSETRON HCL 4MG/2ML INJ IV STA (04:22)
[2023-09-30] MEDS ORDERED: SODIUM CHLORIDE 0.9% 1,000 ML IV ONE (04:30)
== END 2023-09-30 06:00 | disposition left against medical advice (07) ==
LOC: ER 05:07
DX: R11.2 Nausea with vomiting, unspecified (principal); R10.84 Generalized abdominal pain; Z53.21 Procedure and treatment not carried out due to patient leaving prior to being seen by health care provider
CPT/HCPCS: J7030; Z7610

== ENCOUNTER 2023-10-07 19:33 | Emergency (ER) | payer OTHER ==
[~2023-10-07] VITALS: Ht 177.8 cm; Wt 81.0 kg
[2023-10-07 20:21] VITALS: TEMP 98.8
[2023-10-07] MEDS: IPRATROPIUM/ALBUTEROL 0.5-3(2.5)MG/3ML NEB HHN ONE (20:30)
[2023-10-07 20:31] VITALS: PULSE 106; RESP 20; O2SAT 98
[2023-10-07] MEDS: FUROSEMIDE 40MG/4ML VIAL IVP ONE (20:41)
[2023-10-07 20:43] LABS: HEMATOCRIT. 48.7 % (42.0-52.0); HEMOGLOBIN. 16.4 g/dL (14.0-18.0); MEAN CORPUSCULAR HEMOGLOBIN 33.6 pg (28.0-32.0); MEAN CORPUSCULAR HGB CONC 33.6 g/dL (31.0-37.0); MEAN CORPUSCULAR VOLUME 100.1 fL (80.0-94.0); MEAN PLATELET VOLUME 7.8 fl (7.4-10.4); PLATELET 235 x1000/uL (130-400); RED BLOOD CELL COUNT 4.87 mill/uL (4.7-6.1); RED CELL DISTRIBUTION WIDTH 15.7 % (11.6-14.6); WHITE BLOOD COUNT 7.5 x1000/uL (4.5-11.0)
[2023-10-07 20:44] LABS: DIFFERENTIAL COMMENT 1
[2023-10-07] MEDS: METHYLPREDNISOLONE SOD SUCC 125MG/2ML (ACT-O-VIAL) IV STA (20:45)
[2023-10-07 20:48] LABS: CHLORIDE 102 mEq/L (98-107); POTASSIUM 4.9 mEq/L (3.5-5.1); SODIUM 136 mEq/L (136-145)
[2023-10-07 20:49] LABS: CARBON DIOXIDE 27 mEq/L (21-32)
[2023-10-07 20:50] LABS: CALCIUM 8.7 mg/dL (8.7-10.4)
[2023-10-07 20:51] LABS: TROPONIN I HIGH SENSITIVITY 49 ng/L (3.0-53)
[2023-10-07 20:54] LABS: CREATININE 1.4 mg/dL (0.6-1.3); GLUCOSE 101 mg/dL (70-105)
[2023-10-07 20:55] LABS: ETHANOL BLOOD < 10 mg/dL (<10); UREA NITROGEN BLOOD 21 mg/dL (9-23)
[2023-10-07] MEDS: ASPIRIN 81MG TABLET PO ONE (21:02)
[2023-10-07 21:04] LABS: CLARITY URINE CLEAR (CLEAR); COLOR URINE YELLOW (YELLOW); GLUCOSE URINE NEGATIVE (NEGATIVE); KETONES URINE NEGATIVE (NEGATIVE); LEUKOCYTE ESTERASE URINE NEGATIVE (NEGATIVE); NITRITE URINE NEGATIVE (NEGATIVE); OCCULT BLOOD URINE NEGATIVE (NEGATIVE); PROTEIN URINE NEGATIVE (NEGATIVE); SPECIFIC GRAVITY URINE 1.007 (1.005-1.030); UROBILINOGEN URINE 0.2 E.U./dL (0.2-1.0)
[2023-10-07 21:11] LABS: *AMPHETAMINES SCREEN URINE NEGATIVE (NEGATIVE); *BARBITURATES SCREEN URINE NEGATIVE (NEGATIVE); *BENZODIAZEPINES SCREEN URINE NEGATIVE (NEGATIVE); *COCAINE SCREEN URINE PRESUMPTIVE POSITIVE (NEGATIVE); CANNABINOID URINE SCREEN NEGATIVE (NEGATIVE); ECSTASY MDMA SCREEN URINE NEGATIVE (NEGATIVE); METHADONE URINE SCREEN NEGATIVE (NEGATIVE); OPIATES URINE SCREEN NEGATIVE (NEGATIVE); PHENCYCLIDINE URINE SCREEN NEGATIVE (NEGATIVE)
[2023-10-07 21:11] LABS: PLATELET ESTIMATE NORMAL
[2023-10-07 21:29] LABS: INR 1.1; PARTIAL THROMBOPLASTIN TIME 27.2 sec (23.4-31.0); PROTHROMBIN TIME 11.8 sec (9.6-11.0)
[2023-10-07 23:17] LABS: TROPONIN I HIGH SENSITIVITY 43 ng/L (3.0-53)
[2023-10-07 23:26] VITALS: BP 106/76; PULSE 88; RESP 19
== END 2023-10-07 23:54 | disposition left against medical advice (07) ==
LOC: ER 19:33
DX: J44.1 Chronic obstructive pulmonary disease with (acute) exacerbation (principal); I50.9 Heart failure, unspecified; F17.210 Nicotine dependence, cigarettes, uncomplicated
CPT/HCPCS: 80305; 80048; 81003; 80320; 83880; 85025; 85610; 85730; 84484; 36415; 71045; 94640; 93005; 96374; 96375; 99285; Z7610 ×6; J1940; J2930; G0480

== ENCOUNTER 2024-05-18 11:44 | Emergency (ER) | payer OTHER ==
[~2024-05-18] VITALS: Ht 182.9 cm; Wt 82.0 kg
[~2024-05-18 11:44] MED LIST changes: +ASPI-1497 MT; +DOCU-138 MT; +FURO-151 MT
[2024-05-18 11:46] VITALS: BP 166/98; PULSE 104; RESP 22; TEMP 98.4; O2SAT 97
[2024-05-18 12:34] LABS: BASOPHILS % 0.6 % (0.0-2.0); EOSINOPHILS % 0.7 % (0.0-5.0); HEMATOCRIT. 45.9 % (42.0-52.0); HEMOGLOBIN. 15.3 g/dL (14.0-18.0); LYMPHOCYTES % 15.1 % (20.0-50.0); MEAN CORPUSCULAR HEMOGLOBIN 32.5 pg (28.0-32.0); MEAN CORPUSCULAR HGB CONC 33.4 g/dL (31.0-37.0); MEAN CORPUSCULAR VOLUME 97.5 fL (80.0-94.0); MEAN PLATELET VOLUME 7.8 fl (7.4-10.4); MONOCYTES % 12.9 % (2.0-8.0); NEUTROPHILS % 70.7 % (40.0-76.0); PLATELET 219 x1000/uL (130-400); RED BLOOD CELL COUNT 4.71 mill/uL (4.7-6.1); RED CELL DISTRIBUTION WIDTH 14.7 % (11.6-14.6); WHITE BLOOD COUNT 6.6 x1000/uL (4.5-11.0)
[2024-05-18 12:43] LABS: CHLORIDE 100 mEq/L (98-107); POTASSIUM 4.8 mEq/L (3.5-5.1); SODIUM 136 mEq/L (136-145)
[2024-05-18 12:44] LABS: CALCIUM 9.4 mg/dL (8.7-10.4); CARBON DIOXIDE 30 mEq/L (21-32)
[2024-05-18 12:49] LABS: GLUCOSE 84 mg/dL (70-105); UREA NITROGEN BLOOD 39 mg/dL (9-23)
[2024-05-18 12:50] LABS: TROPONIN I HIGH SENSITIVITY 47 ng/L (3.0-53)
[2024-05-18 12:52] LABS: CREATININE 2.1 mg/dL (0.6-1.3)
== END 2024-05-18 16:13 | disposition home or self-care (01) ==
LOC: ER 11:44 → CANBEDREQ 14:31 → ER 16:13
DX: N17.9 Acute kidney failure, unspecified (principal); R06.02 Shortness of breath; I50.9 Heart failure, unspecified; J44.9 Chronic obstructive pulmonary disease, unspecified; Z79.51 Long term (current) use of inhaled steroids; Z79.82 Long term (current) use of aspirin; Z79.899 Other long term (current) drug therapy; Z91.148 Patient's other noncompliance with medication regimen for other reason
CPT/HCPCS: 80048; 83880; 85025; 84484; 36415; 93005; 99284; Z7610

== ENCOUNTER 2024-05-31 04:00 | Emergency (ER) | payer OTHER ==
[~2024-05-31] VITALS: Ht 172.7 cm; Wt 71.0 kg
[2024-05-31 04:08] VITALS: O2SAT 97
[2024-05-31 08:33] VITALS: BP 106/73
[2024-05-31 11:37] VITALS: PULSE 75; RESP 18; TEMP 37.16964; O2SAT 92
== END 2024-05-31 11:41 | disposition home or self-care (01) ==
LOC: ER 04:00
DX: J44.9 Chronic obstructive pulmonary disease, unspecified (principal); I50.9 Heart failure, unspecified; Z79.82 Long term (current) use of aspirin; Z79.899 Other long term (current) drug therapy
CPT/HCPCS: 73120; 99283

== ENCOUNTER 2024-06-04 13:50 | Emergency (ER) | payer OTHER ==
[~2024-06-04] VITALS: Ht 180.3 cm; Wt 75.0 kg
[2024-06-04 14:28] VITALS: O2SAT 96
[2024-06-04] MEDS ORDERED: NAPR-1176 MT (16:36)
[2024-06-04 17:05] VITALS: BP 109/70; PULSE 48; RESP 18; TEMP 36.89184; O2SAT 96
== END 2024-06-04 17:12 | disposition home or self-care (01) ==
LOC: ER 13:50
DX: G62.9 Polyneuropathy, unspecified (principal); J44.9 Chronic obstructive pulmonary disease, unspecified; I50.9 Heart failure, unspecified; Z79.899 Other long term (current) drug therapy; Z79.51 Long term (current) use of inhaled steroids; Z79.1 Long term (current) use of non-steroidal anti-inflammatories (NSAID); Z79.82 Long term (current) use of aspirin
CPT/HCPCS: 73030; 99283; Z7610

== ENCOUNTER 2024-06-23 06:53 | Inpatient (IN) | payer OTHER ==
[2024-06-23] VITALS (7 sets, daily range): BP systolic 102–129; BP diastolic 70–93; PULSE 75–118; RESP 20–29; TEMP 36.3–36.7; O2SAT 92–98
[~2024-06-23] VITALS: Ht 182.9 cm; Wt 79.4 kg
[~2024-06-23 06:53] MED LIST changes: +NAPR-1176 MT
[2024-06-23 08:07] LABS: BASOPHILS % 0.5 % (0.0-2.0); EOSINOPHILS % 1.4 % (0.0-5.0); HEMATOCRIT. 46.7 % (42.0-52.0); HEMOGLOBIN. 15.2 g/dL (14.0-18.0); LYMPHOCYTES % 20.9 % (20.0-50.0); MEAN CORPUSCULAR HEMOGLOBIN 32.1 pg (28.0-32.0); MEAN CORPUSCULAR HGB CONC 32.6 g/dL (31.0-37.0); MEAN CORPUSCULAR VOLUME 98.3 fL (80.0-94.0); MEAN PLATELET VOLUME 7.9 fl (7.4-10.4); MONOCYTES % 11.7 % (2.0-8.0); NEUTROPHILS % 65.5 % (40.0-76.0); PLATELET 208 x1000/uL (130-400); RED BLOOD CELL COUNT 4.75 mill/uL (4.7-6.1); RED CELL DISTRIBUTION WIDTH 15.4 % (11.6-14.6); WHITE BLOOD COUNT 4.8 x1000/uL (4.5-11.0)
[2024-06-23 08:09] LABS: DIFFERENTIAL COMMENT 1
[2024-06-23 08:10] LABS: CHLORIDE 105 mEq/L (98-107); POTASSIUM 4.2 mEq/L (3.5-5.1); SODIUM 141 mEq/L (136-145)
[2024-06-23 08:11] LABS: CARBON DIOXIDE 28 mEq/L (21-32)
[2024-06-23 08:16] LABS: CREATININE 1.7 mg/dL (0.6-1.3); GLUCOSE 91 mg/dL (70-105)
[2024-06-23 08:17] LABS: TROPONIN I HIGH SENSITIVITY 33 ng/L (3.0-53); UREA NITROGEN BLOOD 26 mg/dL (9-23)
[2024-06-23] MEDS: ALBUTEROL (0.083%) 2.5MG/3ML NEB HHN SCH (09:40)
[2024-06-23] MEDS: IPRATROPIUM BROMIDE (0.02%) 0.5MG/2.5ML NEB HHN STA (09:40)
[2024-06-23] MEDS: FUROSEMIDE 40MG/4ML VIAL IVP ONE (10:01)
[2024-06-23] MEDS: MAGNESIUM 2 G PREMIX 50 ML IV ONE (10:01)
[2024-06-23] MEDS: METHYLPREDNISOLONE SOD SUCC 125MG/2ML (ACT-O-VIAL) IV STA (10:01)
[2024-06-23] MEDS: FUROSEMIDE 40MG/4ML VIAL IVP NR (10:02)
[2024-06-23] MEDS ORDERED: ONDANSETRON HCL 4MG/2ML INJ IV PRN (11:15)
[2024-06-23 11:30] LABS: TROPONIN I HIGH SENSITIVITY 32 ng/L (3.0-53)
[2024-06-23] MEDS: FUROSEMIDE 40MG/4ML VIAL IVP SCH (11:33)
[2024-06-23 13:12] LABS: HEPATITIS B SURFACE ANTIGEN NEGATIVE (Negative)
[2024-06-23 13:33] LABS: HEPATITIS C AB NON REACTIVE (Neg) (Negative)
[2024-06-23] MEDS: IPRATROPIUM/ALBUTEROL 0.5-3(2.5)MG/3ML NEB HHN SCH (14:25)
[2024-06-23] MEDS: SACUBITRIL/VALSARTAN 24MG/26MG TABLET PO SCH (23:22)
[2024-06-24] VITALS (8 sets, daily range): BP systolic 100–120; BP diastolic 52–75; PULSE 78–101; RESP 18–22; TEMP 36–36.7; O2SAT 95–100
[2024-06-24] MEDS: ACETAMINOPHEN 325MG TABLET PO PRN (08:29)
[2024-06-24] MEDS: SPIRONOLACTONE 25MG TABLET PO SCH (08:31)
[2024-06-24] MEDS: EMPAGLIFLOZIN 10MG TABLET PO SCH (08:31)
[2024-06-24] MEDS ORDERED: SPIR25TA PO (10:36)
[2024-06-24] MEDS ORDERED: FURO-151 MT (10:36)
[2024-06-24] MEDS ORDERED: CARV3.1242 MT (10:36)
[2024-06-24] MEDS ORDERED: SACU1TAB PO (10:36)
[2024-06-24] MEDS ORDERED: EMPA10TA PO (10:36)
[2024-06-24] MEDS ORDERED: ALBU18HF2 IH (10:36)
[2024-06-24 12:07] LABS: CALCIUM 8.5 mg/dL (8.7-10.4); POTASSIUM 4.1 mEq/L (3.5-5.1)
[2024-06-24 12:13] LABS: CREATININE 1.6 mg/dL (0.6-1.3)
== END 2024-06-24 18:34 | disposition home or self-care (01) | DRG 133 ==
LOC: ER 06:53 → 3WST 09:55 → EDBEDREQ 09:57 → EDBEDREQTM 09:57
PROVIDERS: ADMIT Internal Medicine; ATTEND Internal Medicine
DX: J96.00 Acute respiratory failure, unspecified whether with hypoxia or hypercapnia (principal); N17.0 Acute kidney failure with tubular necrosis; I50.23 Acute on chronic systolic (congestive) heart failure; I11.0 Hypertensive heart disease with heart failure; I27.20 Pulmonary hypertension, unspecified; I42.0 Dilated cardiomyopathy; R94.31 Abnormal electrocardiogram [ECG] [EKG]; G47.30 Sleep apnea, unspecified; J44.9 Chronic obstructive pulmonary disease, unspecified; I34.0 Nonrheumatic mitral (valve) insufficiency; Z91.148 Patient's other noncompliance with medication regimen for other reason
CPT/HCPCS: 36415; 71045; 76604; 80048; 83880; 84484; 85025; 86705; 87340; 93005; 93880; 94640; 94664; 94760; 99291; J1940; J2919; J3475

== ENCOUNTER 2025-02-04 00:53 | Emergency (ER) | payer OTHER ==
[~2025-02-04] VITALS: Ht 167.6 cm; Wt 68.0 kg
[~2025-02-04 00:53] MED LIST changes: -ASPI-1160 PO; +CARV3.1242 MT; +EMPA10TA PO; -FURO-151 MT; -LOSA-412 PO; -NAPR-1176 MT; +SACU1TAB PO
[2025-02-04 01:12] VITALS: O2SAT 97
[2025-02-04] MEDS ORDERED: FUROSEMIDE 40MG/4ML VIAL IVP ONE (02:00)
[2025-02-04] MEDS: FUROSEMIDE 40MG TABLET PO ONE (03:29)
[2025-02-04 04:02] VITALS: BP 103/79; PULSE 95; RESP 14; TEMP 36.8; O2SAT 97
== END 2025-02-04 04:20 | disposition home or self-care (01) ==
LOC: ER 00:53
DX: J44.9 Chronic obstructive pulmonary disease, unspecified (principal); I50.9 Heart failure, unspecified; Z79.51 Long term (current) use of inhaled steroids; Z79.84 Long term (current) use of oral hypoglycemic drugs; Z79.82 Long term (current) use of aspirin; Z79.899 Other long term (current) drug therapy; R06.02 Shortness of breath
CPT/HCPCS: 71045; 99283; Z7610

== ENCOUNTER 2025-02-09 18:06 | Emergency (ER) | payer OTHER ==
[~2025-02-09] VITALS: Ht 180.3 cm; Wt 74.0 kg
[~2025-02-09 18:06] MED LIST changes: +APIX5TAB MT
[2025-02-09 18:13] VITALS: BP 97/68; RESP 20; TEMP 36.9; O2SAT 97
[2025-02-09 18:22] VITALS: PULSE 88; O2SAT 85
[2025-02-11] MEDS ORDERED: METH4TAB95 MT (11:45)
== END 2025-02-09 18:40 | disposition left against medical advice (07) ==
LOC: ER 18:06
DX: R06.02 Shortness of breath (principal); I50.9 Heart failure, unspecified; J44.9 Chronic obstructive pulmonary disease, unspecified; Z53.21 Procedure and treatment not carried out due to patient leaving prior to being seen by health care provider